=== PATIENT | male | born 1970 | race Caucasian/White ===

== ENCOUNTER 2018-02-17 11:00 | Emergency (ER) | payer MEDICAID ==
[~2018-02-17] VITALS: Ht 160 cm; Wt 90.7 kg
[2018-02-17 11:10] VITALS: BP 114/66
--- NOTE | 2018-02-17 11:13 | NUR ---
pt ambulates w/ steady gait to bed 6 at this time with family.
--- NOTE | 2018-02-17 11:17 | NUR ---
47 yo m bib family w/ c/o rt lower back pain/burning sensation/spasm radiating to rt lower leg with tingling. Denies acute injury. reports that he has had an episode similar to this in the past. Took tylenol last night, but it did not alleviate the pain. denies pain meds today. denies n/v/fever. aaox4. gcs 15. cms intact. rr even and unlabored. lungs clear. abd soft, non-tender. ER MD Merritt notfied. pt unable to lay down comfortably at this time. safety precautions in place. pt needs met. will continue to monitor.
[2018-02-17] MEDS ORDERED: MORPHINE SULFATE 2 MG/ML SYR IM ONE (11:20)
[2018-02-17] MEDS ORDERED: KETOROLAC 60 MG/2 ML VIAL IM ONE (11:20)
[2018-02-17] MEDS ORDERED: LORazepam 2 MG/ML VIAL IM ONE (11:20)
--- NOTE | 2018-02-17 12:16 | NUR ---
Pt. resting comfortably in bed, rr even and unlabored. Pt. states " My pain went down from a 10/10 to 4/10 I feel good right now". VSS. Will continue to monitor. Family member at bedside.
[2018-02-17 13:06] VITALS: BP 112/60
--- NOTE | 2018-02-17 13:06 | NUR ---
Patient discharged with v/s stable. Written and verbal after care instructions given and explained. Patient alert, oriented and verbalized understanding of instructions. Ambulatory with steady gait. All questions addressed prior to discharge. ID band removed. Patient advised to follow up with PMD. Rx of voltaren and toradol given. Patient educated on indication of medication including possible reaction and side effects. Opportunity to ask questions provided and answered.
== END 2018-02-17 13:06 | disposition home or self-care (01) ==
LOC: MED 11:00
DX: M62.830 Muscle spasm of back (principal); M54.5 Low back pain
CPT/HCPCS: 96372; 99284; J1885; J2060; J2270

== ENCOUNTER 2019-10-08 21:14 | Emergency (ER) | payer MEDICAID ==
[~2019-10-08] VITALS: Ht 154.9 cm; Wt 96.2 kg
[2019-10-08 21:16] VITALS: BP 123/84
--- NOTE | 2019-10-08 21:21 | NUR ---
PT AMBULATED TO BED #3
--- NOTE | 2019-10-08 21:29 | NUR ---
48 YEAR OLD MALE COMPLAINS OF PRODUCTIVE COUGH X 3 WEEKS, ALSO COMPLAINS OF SHORTNESS OF BREATHE RECENTLY. PATIENT LUNGS WHEEZING BILATERALLY, BREATHING LABORED AND EVEN. SPO2 93%, RR 18, HR 108, BP 118/73. PATIENT AOX4, SKIN WARM AND DRY. BED IN LOWEST POSITION, LOCKED, BED RAIL UPX1. PMH - DENIES ALLERGIES - NKA
--- NOTE | 2019-10-08 21:29 | NUR ---
DR LONG AT BEDSIDE
[2019-10-08] MEDS ORDERED: ALBUTEROL 0.083% 2.5 MG/3 ML NEBU INH ONE (21:30)
[2019-10-08] MEDS ORDERED: IPRATROPIUM 0.02% 0.5 MG/2.5 ML NEBU INH ONE (21:30)
--- NOTE | 2019-10-08 22:06 | NUR ---
PT STATES FEELS MUCH BETTER AFTER BREATHING TREATMENT, SPO2 95%, RR 20.
[2019-10-08 23:38] VITALS: BP 100/66
--- NOTE | 2019-10-08 23:39 | NUR ---
Patient discharged with v/s stable. Written and verbal after care instructions given and explained. Patient alert, oriented and verbalized understanding of instructions. Ambulatory with steady gait. All questions addressed prior to discharge. ID band removed. Patient advised to follow up with PMD. Rx of albuterol inh, albuterol neb, azithromycin given. Patient educated on indication of medication including possible reaction and side effects. Opportunity to ask questions provided and answered.
== END 2019-10-08 23:38 | disposition home or self-care (01) ==
LOC: MED 21:14
DX: R05 Cough (principal); R06.2 Wheezing
CPT/HCPCS: 71045; 94640; 99283; J7613; J7644; Q0092

== ENCOUNTER 2019-10-15 16:06 | Emergency (ER) | payer MEDICAID ==
[~2019-10-15] VITALS: Ht 165.1 cm; Wt 85.7 kg
--- NOTE | 2019-10-15 16:09 | NUR ---
PT AMBULATED TO BED 4.
[2019-10-15 16:13] VITALS: BP 137/74
--- NOTE | 2019-10-15 16:20 | NUR ---
DR FINE AT BEDSIDE.
[2019-10-15] MEDS ORDERED: KETOROLAC 30 MG/ML VIAL IVP ONE (16:25)
[2019-10-15] MEDS ORDERED: NACL 0.9% 1,000 ML IV ONE (16:25)
--- NOTE | 2019-10-15 16:30 | NUR ---
C/O ABD PAIN SINCE WEDNESDAY, PT REPORTS HE WAS HERE 10/07 FOR RESP INFECTION AND WAS GIVEN AZITHROMYCIN, SINCE THEN HES BEEN HAVING DIARRHEA AND LOWER LEFT ABD PAIN NO PMH. PT AWAKE , ALERT, AFIBRILE, AMBULATORY WITH STEADY GAIT. SOFT NABS NONTENDER. NKA
--- NOTE | 2019-10-15 16:31 | NUR ---
PT WENT TO CT SCAN VIA WHEELCHAIR.
[2019-10-15 17:26] LABS: BASOPHILS # (AUTO) 0.1 K/uL (0.00-0.22); BASOPHILS % (AUTO) 1.1 % (0.0-2.0); EOSINOPHILS # (AUTO) 0.6 K/uL (0-0.4); EOSINOPHILS % (AUTO) 8.1 % (0.0-4.0); HEMATOCRIT 44.9 % (36-52); LYMPHOCYTES # (AUTO) 2.2 K/uL (2.0-11.5); LYMPHOCYTES % (AUTO) 31.4 % (20.5-51.1); MEAN CORPUSCULAR HEMOGLOBIN 29 pg (27-31); MEAN CORPUSCULAR HGB CONC 34 g/dL (33-37); MEAN CORPUSCULAR VOLUME 86.1 fL (80-94); MONOCYTES # (AUTO) 0.5 K/uL (0.8-1.0); MONOCYTES % (AUTO) 7.9 % (1.7-9.3); NEUTROPHILS # (AUTO) 3.5 K/uL (1.8-7.7); NEUTROPHILS % (AUTO) 51.5 % (42.2-75.2); PLATELET COUNT (AUTO) 320 K/uL (140-450); RED BLOOD CELL COUNT(AUTO) 5.21 MIL/uL (4.20-6.10); RED CELL DISTRIBUTION WIDTH 13.2 % (11.6-13.7); WHITE BLOOD COUNT (AUTO) 6.9 K/uL (4.8-10.8)
--- NOTE | 2019-10-15 17:40 | NUR ---
Patient discharged with v/s stable. Written and verbal after care instructions given and Dr walter explained regarding abdominal pain. Patient alert, oriented and verbalized understanding of instructions. Ambulatory with steady gait. All questions addressed prior to discharge. ID band removed. Patient advised to follow up with PMD. Rx of pro biotics given. Patient educated on indication of medication including possible reaction and side effects. Opportunity to ask questions provided and answered.dr walter discharge pt.
[2019-10-15 17:42] LABS: ALBUMIN 3.6 g/dL (3.4-5.0); ANION GAP 10.9 (8-16); CARBON DIOXIDE 29.9 mmol/L (21-32); CREATININE 1.1 mg/dL (0.6-1.3); POTASSIUM 3.8 mmol/L (3.5-5.1); TOTAL BILIRUBIN 0.3 mg/dL (0.0-1.0)
[2019-10-15 17:51] VITALS: BP 137/74
--- NOTE | 2019-10-17 10:27 | NUR ---
Late entry. Confirmed with RN that 0.9NS IV completed at 1740
== END 2019-10-15 17:40 | disposition home or self-care (01) ==
LOC: MED 16:06
DX: K52.1 Toxic gastroenteritis and colitis (principal); T36.3X5A Adverse effect of macrolides, initial encounter; Y92.89 Other specified places as the place of occurrence of the external cause
CPT/HCPCS: 36415; 74176; 80053; 85025; 87040; 96361; 96374; 99284; J1885; J7030

== ENCOUNTER 2019-11-14 22:29 | Emergency (ER) | payer MEDICAID ==
[~2019-11-14] VITALS: Ht 167.6 cm; Wt 90.7 kg
[2019-11-14 22:38] VITALS: BP 130/68
[2019-11-14] MEDS ORDERED: IBUPROFEN 600 MG TAB PO ONE (22:45)
[2019-11-14] MEDS ORDERED: BACITRACIN OINT 500 UNITS/GM PKT TP ONE ×2 (23:15→23:16)
[2019-11-14 23:33] VITALS: BP 130/68
== END 2019-11-14 23:34 | disposition home or self-care (01) ==
LOC: MED 22:29
DX: S61.002A Unspecified open wound of left thumb without damage to nail, initial encounter (principal); W29.4XXA Contact with nail gun, initial encounter; Y93.89 Activity, other specified; Y92.89 Other specified places as the place of occurrence of the external cause; Y99.8 Other external cause status
CPT/HCPCS: 29130; 73140; 90471; 90715; 99283; Q0092

== ENCOUNTER 2019-12-16 17:05 | Emergency (ER) | payer MEDICAID ==
[~2019-12-16] VITALS: Ht 162.6 cm; Wt 96.6 kg
[2019-12-16 17:09] VITALS: BP 105/72
--- NOTE | 2019-12-16 17:12 | NUR ---
PT AMBULATED TO BED 12, STEADY GAIT.
--- NOTE | 2019-12-16 17:20 | NUR ---
49 Y/O MALE FROM HOME C/O HEADACHE TO OCCIPITAL REGION X 6 DAYS. STATES DIZZINESS WITH SLIGHT BLURRED VISION. DENIES PHOTOSENSITIVITY. DENIES N/V/D. 6/10 CONSTANT ACHING PAIN. STATES HE TOOK ANTIBIOTIC FROM PREVIOUS VISIT YESTERDAY AND NOW HAS RASH ON BILATERAL LOWER EXTREMITIES. SITTING UPRIGHT AWAKE AND ALERT. MEDHX: DENIES ALLERIGES: RYANA
--- NOTE | 2019-12-16 17:37 | NUR ---
DR METCALF AT BEDSIDE EXAMINING PT
[2019-12-16] MEDS ORDERED: KETOROLAC 30 MG/ML VIAL IM ONE (17:45)
[2019-12-16 18:00] VITALS: BP 105/72
--- NOTE | 2019-12-16 18:00 | NUR ---
Patient discharged with v/s stable. Written and verbal after care instructions given and explained. Patient alert, oriented and verbalized understanding of instructions. Ambulatory with steady gait. All questions addressed prior to discharge. ID band removed. Patient advised to follow up with PMD. Rx of NORCO, BACTRIM, KEFLEX AND IBUPROFEN given. Patient educated on indication of medication including possible reaction and side effects. Opportunity to ask questions provided and answered.
== END 2019-12-16 18:00 | disposition home or self-care (01) ==
LOC: MED 17:05
DX: L02.811 Cutaneous abscess of head [any part, except face] (principal); R51 Headache
CPT/HCPCS: 96372; 99283; J1885

== ENCOUNTER 2020-03-20 21:24 | Emergency (ER) | payer MEDICAID ==
[~2020-03-20] VITALS: Ht 162.6 cm; Wt 98.9 kg
--- NOTE | 2020-03-20 21:37 | NUR ---
PT TAKEN TO BED 4
[2020-03-20 21:38] VITALS: BP 129/84
--- NOTE | 2020-03-20 21:40 | NUR ---
49 YO M BIB SELF FOR C/C OF GNERALIZED WEAKNESS, BECKER, ORBITAL PAIN, AND "FEELING LIKE IM GOING TO PASS OUT" X6 DAYS. PT DENIES N/V/D, SOB, COUGH, AND FEVER. PT STATES HE HASNT BEEN EATING UNTIL THE AFTERNOON TIME ALTHOUGH HE WORKS ALL DAY STARTING IN THE MORNING. PT DENIES TAKING ANY OTC MEDS. BED LOCKED AND IN LOWEST POSITION. SIDE RAILS X1. NKA NO MED HX NO RX
--- NOTE | 2020-03-20 22:26 | NUR ---
Dr. Ortiz examining patient.
[2020-03-20] MEDS ORDERED: METOCLOPRAMIDE 10 MG/2 ML INJ VIAL IVP ONE (22:50)
[2020-03-20] MEDS ORDERED: KETOROLAC 15 MG/ML VIAL IVP ONE (22:50)
[2020-03-20] MEDS ORDERED: NACL 0.9% 1,000 ML IV ONE (22:50)
[2020-03-20 23:03] LABS: BASOPHILS # (AUTO) 0.1 K/uL (0.00-0.22); BASOPHILS % (AUTO) 0.8 % (0.0-2.0); EOSINOPHILS # (AUTO) 0.3 K/uL (0-0.4); EOSINOPHILS % (AUTO) 5.4 % (0.0-4.0); HEMATOCRIT 43.6 % (36-52); HEMOGLOBIN 14.6 g/dL (12.0-18.0); LYMPHOCYTES # (AUTO) 2.5 K/uL (2.0-11.5); LYMPHOCYTES % (AUTO) 38.4 % (20.5-51.1); MEAN CORPUSCULAR HEMOGLOBIN 29 pg (27-31); MEAN CORPUSCULAR HGB CONC 34 g/dL (33-37); MEAN CORPUSCULAR VOLUME 86.7 fL (80-94); MONOCYTES # (AUTO) 0.4 K/uL (0.8-1.0); MONOCYTES % (AUTO) 6.1 % (1.7-9.3); NEUTROPHILS # (AUTO) 3.2 K/uL (1.8-7.7); NEUTROPHILS % (AUTO) 49.3 % (42.2-75.2); PLATELET COUNT (AUTO) 306 K/uL (140-450); RED BLOOD CELL COUNT(AUTO) 5.02 MIL/uL (4.20-6.10); RED CELL DISTRIBUTION WIDTH 13.4 % (11.6-13.7); WHITE BLOOD COUNT (AUTO) 6.5 K/uL (4.8-10.8)
[2020-03-20 23:15] LABS: ANION GAP 14.1 (8-16); CARBON DIOXIDE 27.3 mmol/L (21-32); POTASSIUM 3.4 mmol/L (3.5-5.1)
--- NOTE | 2020-03-20 23:34 | NUR ---
Dr. Anna examining patient.
--- NOTE | 2020-03-20 23:40 | NUR ---
PT RESTING IN BED COMFORTABLY, SAYS HE "FEELS GREAT RIGHT NOW AND THE MEDICINE HELPED ALOT."
[2020-03-21 00:03] VITALS: BP 112/70
--- NOTE | 2020-03-21 00:03 | NUR ---
Patient discharged with v/s stable. Written and verbal after care instructions given and explained. Patient verbalized understanding. Ambulatory with steady gait. All questions addressed prior to discharge. Advised to follow up with PMD.
== END 2020-03-21 00:03 | disposition home or self-care (01) ==
LOC: MED 21:24
DX: R51 Headache (principal); R42 Dizziness and giddiness
CPT/HCPCS: 36415; 80048; 85025; 96361; 96374; 96375; 99284; J1885; J2765; J7030

== ENCOUNTER 2020-11-20 22:03 | Emergency (ER) | payer MEDICAID ==
[~2020-11-20] VITALS: Ht 154.9 cm; Wt 94.3 kg
[2020-11-20 22:11] VITALS: BP 125/61
--- NOTE | 2020-11-20 22:15 | NUR ---
PT TO AWAIT IN LOBBY, AMBULATORY
--- NOTE | 2020-11-20 23:15 | NUR ---
PATIENT BIB SELF FOR C/O 5/10 PAIN TO RIGHT LOWER EXTREMITY X 5 DAYS. PATIENT STATES "I GOT THE BOB & BOB COVID VACCINE ON WEDNESDAY, THEN WEDNESDAY I GOT A RASH ALL OVER AND A BUMP IN MY LEG THAT IS PAINFUL." A & O X4. PATIENT STATES GENERALIZED RASH IS ITCHY AND PAINFUL. PATIENT REPORTS "I ALSO HAVE BUMPS ON THE BACK OF MY RIGHT KNEE." PATIENTS SKIN IS WARM, DRY AND INTACT WITH NOTED RASH, NO OPEN LESIONS. CMS INTACT. PEDAL PULSES EQUAL BILATERALLY. PATIENT IS AMBULATORY. CAP REFILL < 3 SECONDS. NO NOTED REDNESS OR HEAT NOTED TO RLE, MILD SWELLING NOTED. PATIENT DENIES CP, SOB, FEVER, CHILLS. BED IS LOCKED AND IN LOWEST POSITION, HOB ELEVATED, BED RAIL X1. SEE COMPLETE ASSESSMENT FOR FURTHER DETAILS. MED HX: DENIES ALLERGIES: NKA
--- NOTE | 2020-11-20 23:34 | NUR ---
DR BLAS AT BEDSIDE EXAMINING PT
--- NOTE | 2020-11-20 23:37 | NUR ---
ERMD AT BEDSIDE.
[2020-11-20] MEDS ORDERED: diphenhydrAMINE 50 MG/ML VIAL IM ONE (23:40)
--- NOTE | 2020-11-21 00:09 | NUR ---
US AT BEDSIDE.
--- NOTE | 2020-11-21 00:47 | NUR ---
Patient appears to be resting comfortably in bed. Vital Signs within normal limits. Respirations even and unlabored. PATIENT STATES "I FEEL A LOT BETTER."
[2020-11-21] MEDS ORDERED: HYD1C TP (02:16)
[2020-11-21] MEDS ORDERED: DIPH25TA53 PO (02:16)
[2020-11-21 02:32] VITALS: BP 112/73
--- NOTE | 2020-11-21 02:36 | NUR ---
Patient discharged with v/s stable. Written and verbal after care instructions given and explained. Patient alert, oriented and verbalized understanding of instructions. Ambulatory with steady gait. All questions addressed prior to discharge. ID band removed. Patient advised to follow up with PMD. Rx of BENADRYL AND HYDROCORTISONE given. Patient educated on indication of medication including possible reaction and side effects. Opportunity to ask questions provided and answered.
== END 2020-11-21 02:32 | disposition home or self-care (01) ==
LOC: MED 22:03
DX: R21 Rash and other nonspecific skin eruption (principal); M79.10 Myalgia, unspecified site; Z79.899 Other long term (current) drug therapy
CPT/HCPCS: 93971; 96372; 99284; J1200

== ENCOUNTER 2021-01-19 15:20 | Emergency (ER) | payer MEDICAID ==
[~2021-01-19] VITALS: Ht 165.1 cm; Wt 96.2 kg
[~2021-01-19 15:20] MED LIST: DIPH25TA53 PO; HYD1C TP
[2021-01-19 15:31] VITALS: BP 114/79
--- NOTE | 2021-01-19 16:12 | NUR ---
TO BED 9
[2021-01-19] MEDS ORDERED: METH750T5 PO (16:55)
[2021-01-19] MEDS ORDERED: LIDO1ADH47 TP (16:55)
[2021-01-19] MEDS ORDERED: methocarbamoL 500 MG TAB PO SCH (16:55)
[2021-01-19] MEDS ORDERED: KETOROLAC 60 MG/2 ML VIAL IM ONE (16:55)
[2021-01-19] MEDS ORDERED: NAPR-54 PO (16:55)
--- NOTE | 2021-01-19 17:30 | NUR ---
50 YEAR OLD MALE COMPLAINS OF LOWER BACK PAIN. PT DENIES CHANGE IN URINATION OR ANY OTHER PROBLEMS. PT AOX4, BREATHING EVEN AND UNLABORED, SKIN WARM AND DRY. BED IN LOWEST POSITION, LOCKED, BED RAIL UPX1. PMH - DENIES ALLERGIES - NKA
[2021-01-19] MEDS ORDERED: CRUSHER, PILL MC ONE (17:34)
[2021-01-19 18:04] VITALS: BP 114/79
--- NOTE | 2021-01-19 18:04 | NUR ---
Patient discharged with v/s stable. Written and verbal after care instructions about muscle strain given and explained. Patient alert, oriented and verbalized understanding of instructions. Ambulatory with steady gait. All questions addressed prior to discharge. ID band removed. Patient advised to follow up with PMD. Rx of lidocaine, robaxin, naprosyn given. Patient educated on indication of medication including possible reaction and side effects. Opportunity to ask questions provided and answered.
== END 2021-01-19 18:04 | disposition home or self-care (01) ==
LOC: MED 15:20
DX: S39.012A Strain of muscle, fascia and tendon of lower back, initial encounter (principal); X58.XXXA Exposure to other specified factors, initial encounter; Y93.89 Activity, other specified; Y92.89 Other specified places as the place of occurrence of the external cause; Y99.8 Other external cause status
CPT/HCPCS: 96372; 99283; J1885; 81002

== ENCOUNTER 2021-08-04 07:25 | Emergency (ER) | payer MEDICAID ==
[~2021-08-04] VITALS: Ht 165.1 cm; Wt 99.3 kg
[~2021-08-04 07:25] MED LIST changes: +LIDO1ADH47 TP; +METH750T5 PO; +NAPR-54 PO
[2021-08-04 07:39] VITALS: BP 110/74
--- NOTE | 2021-08-04 07:46 | NUR ---
pt ambulated to bed 02
--- NOTE | 2021-08-04 08:03 | NUR ---
NOVEL SWAB COLLECTED AND WALKED TO LAB.
[2021-08-04] MEDS ORDERED: ACETAMINOPHEN 325 MG TAB PO ONE (08:10)
--- NOTE | 2021-08-04 08:33 | NUR ---
50/M BIB SELF WITH C/O COUGH, CHILLS, FEVER AND BODY ACHES X4 DAYS. PATIENT STATES HE IS COVID VACCINATED AND DENIES ANY SICK CONTACTS OR ANYONE AT HOME WITH THE SAME SYMPTOMS. PATIENT STATES MILD CHEST PAIN THAT WORSENS WITH COUGH, DENIES N/V/D OR URINARY SYMPTOMS.
[2021-08-04 09:00] VITALS: BP 110/74
--- NOTE | 2021-08-06 14:08 | NUR ---
RECEIVED COVID + RESULT, ASKED FOR COPY TO BE SENT TO LEAVE IN INFECTION CONTROL MAILBOX.
== END 2021-08-04 09:01 | disposition home or self-care (01) ==
LOC: MED 07:25
DX: J06.9 Acute upper respiratory infection, unspecified (principal); Z20.822 Contact with and (suspected) exposure to COVID-19
CPT/HCPCS: 71045; 99284; Q0092; U0003

== ENCOUNTER 2021-10-08 17:33 | Emergency (ER) | payer MEDICAID ==
[~2021-10-08] VITALS: Ht 157.5 cm; Wt 97.1 kg
[2021-10-08 17:58] VITALS: BP 136/76
--- NOTE | 2021-10-08 18:16 | NUR ---
SWETHA FONG EVALUATING PATIENT AT BEDSIDE.
[2021-10-08] MEDS ORDERED: methylPREDNISolone SS 125 MG in WATER STERILE 2 ML IM ONE (18:20)
--- NOTE | 2021-10-08 18:21 | NUR ---
50/M BIB SELF, AA&OX4, AMBULATORY W/ STEADY GAIT; PRESENTS TO ED WITH C/O GENERALIZED BODY RASH AND EYE PAIN 8/10 X3 DAYS. PATIENT STATES HIS SKIN IS "ITCHY AND FEELS IT IS BURNING."PATIENT STATES HE WORKS WITH [employer] AND STATES HE HAD DEBRIS FALL ON HIM. PATIENT DENIES SOB, CP, FEVER, CHILLS, N/V/D, INJURY/TRAUMA. PATIENT STATES TO HAVE PUT AN UNKNOWN OTC "ITCH CREAM" AT HOME TO HELP W/ SYMPTOMS, NO RELIEF NOTED. MEDS: DENIES PMH: DENIES NKA
[2021-10-08] MEDS ORDERED: PRED20TA5 PO (18:25)
[2021-10-08] MEDS ORDERED: KEN.1O TP (18:25)
[2021-10-08] MEDS ORDERED: WATER STERILE 10 ML MC ONE (18:26)
[2021-10-08] MEDS ORDERED: methylPREDNISolone SS 125 MG/2 ML VIAL ONE (18:26)
[2021-10-08 18:59] VITALS: BP 136/76
--- NOTE | 2021-10-08 18:59 | NUR ---
Patient discharged with v/s stable. Written and verbal after care instructions given FOR RASH and explained. Patient alert, oriented and verbalized understanding of instructions. Ambulatory with steady gait. All questions addressed prior to discharge. ID band removed. Patient advised to follow up with PMD. Rx of KENALOG AND PREDNISONE given. Patient educated on indication of medication including possible reaction and side effects. Opportunity to ask questions provided and answered.
--- NOTE | 2021-10-08 19:01 | NUR ---
The patient's care was reviewed and supervised by Kate Rios RN.
== END 2021-10-08 18:59 | disposition home or self-care (01) ==
LOC: MED 17:33
DX: L23.9 Allergic contact dermatitis, unspecified cause (principal); Z79.899 Other long term (current) drug therapy
CPT/HCPCS: 96372; 99283; J2930

== ENCOUNTER 2022-01-25 22:01 | Emergency (ER) | payer MEDICAID ==
[~2022-01-25] VITALS: Ht 162.6 cm; Wt 103.0 kg
[~2022-01-25 22:01] MED LIST changes: +KEN.1O TP; +PRED20TA5 PO
[2022-01-25 23:02] VITALS: BP 130/72
--- NOTE | 2022-01-25 23:02 | NUR ---
ALLERGIC REACTION S/P EATING PORK ABOUT 1PM. PT REPORTS ITCHINESS ON ARM AND CHEST. DENIES DIFFICULTY BREATHING. STATES THROAT IS A LITTLE TIGHT. PT STATES HE HAS EATTEN PORK IN PAST WITHOUT ISSUES. DENIES HX, RX AND ALLERGIES
--- NOTE | 2022-01-25 23:06 | NUR ---
PT TO NAY.
--- NOTE | 2022-01-25 23:12 | NUR ---
pt ambulated to bed 11
[2022-01-25] MEDS ORDERED: predniSONE 20 MG TAB PO ONE (23:45)
[2022-01-25] MEDS ORDERED: DIPH25TA53 PO (23:48)
[2022-01-25] MEDS ORDERED: EPIN1KIT31 IM (23:48)
[2022-01-25] MEDS ORDERED: PRED20TA5 PO (23:48)
[2022-01-26 00:35] VITALS: BP 130/72
--- NOTE | 2022-01-26 00:35 | NUR ---
Patient discharged with v/s stable. Written and verbal after care instructions given and explained. Patient alert, oriented and verbalized understanding of instructions. Ambulatory with steady gait. All questions addressed prior to discharge. ID band removed. Patient advised to follow up with PMD. Rx of Benadryl, & Prednisone given. Patient educated on indication of medication including possible reaction and side effects. Opportunity to ask questions provided and answered.
== END 2022-01-26 00:35 | disposition home or self-care (01) ==
LOC: MED 22:01
DX: T78.1XXA Other adverse food reactions, not elsewhere classified, initial encounter (principal); L23.9 Allergic contact dermatitis, unspecified cause; Z79.899 Other long term (current) drug therapy; X58.XXXA Exposure to other specified factors, initial encounter
CPT/HCPCS: 99283; J7512; Q0163

== ENCOUNTER 2022-07-19 18:48 | Emergency (ER) | payer MEDICAID ==
[~2022-07-19] VITALS: Ht 167.6 cm; Wt 98.9 kg
[~2022-07-19 18:48] MED LIST changes: +EPIN1KIT31 IM
[2022-07-19 19:45] VITALS: BP 122/75
[2022-07-19 19:47] LABS: BASOPHILS % (AUTO) 0.5 % (0.0-2.0); EOSINOPHILS # (AUTO) 0.4 K/uL (0-0.4); EOSINOPHILS % (AUTO) 4.1 % (0.0-4.0); HEMOGLOBIN 15.1 g/dL (12.0-18.0); LYMPHOCYTES # (AUTO) 3.6 K/uL (2.0-11.5); LYMPHOCYTES % (AUTO) 38.7 % (20.5-51.1); MEAN CORPUSCULAR HEMOGLOBIN 29 pg (27-31); MEAN CORPUSCULAR HGB CONC 34 g/dL (33-37); MEAN CORPUSCULAR VOLUME 85.2 fL (80-94); MONOCYTES # (AUTO) 0.6 K/uL (0.8-1.0); MONOCYTES % (AUTO) 6.9 % (1.7-9.3); NEUTROPHILS # (AUTO) 4.6 K/uL (1.8-7.7); NEUTROPHILS % (AUTO) 49.8 % (42.2-75.2); PLATELET COUNT (AUTO) 337 K/uL (140-450); RED BLOOD CELL COUNT(AUTO) 5.29 MIL/uL (4.20-6.10); RED CELL DISTRIBUTION WIDTH 13.9 % (11.6-13.7); WHITE BLOOD COUNT (AUTO) 9.3 K/uL (4.8-10.8)
--- NOTE | 2022-07-19 19:49 | NUR ---
TO LOBBY A/W BED AMBULATORY
[2022-07-19 20:07] LABS: ALBUMIN 3.6 g/dL (3.4-5.0); ANION GAP 9.4 (8-16); CARBON DIOXIDE 33.8 mmol/L (21-32); CREATININE 0.9 mg/dL (0.6-1.3); POTASSIUM 4.2 mmol/L (3.5-5.1); TOTAL BILIRUBIN 0.2 mg/dL (0.0-1.0)
--- NOTE | 2022-07-19 21:00 | NUR ---
PT TAKEN TO XRAY
[2022-07-19] MEDS ORDERED: ONDANSETRON 4 MG ODT PO ONE (21:20)
[2022-07-19] MEDS ORDERED: FAMOTIDINE 20 MG TAB PO ONE (21:20)
[2022-07-19] MEDS ORDERED: DICYCLOMINE HCL LIQUID 20 MG, ALUMINUM HYD/MAG/SIMETHICONE 30 ML, LIDOCAINE VISCOUS 2% ... PO ONE ×3 (21:20)
[2022-07-19] MEDS ORDERED: DICYCLOMINE HCL LIQUID 10 MG/5 ML UDC ONE (21:42)
[2022-07-19] MEDS ORDERED: ALUMINUM HYD/MAG/SIMETHICONE 30 ML UDC ONE (21:42)
--- NOTE | 2022-07-19 21:49 | NUR ---
PATIENT MEDICATED. TOLERATED WELL. PLACED BACK IN LOBBY
[2022-07-19 21:53] LABS: APPEARANCE,URINE CLEAR (CLEAR); BILIRUBIN,URINE NEGATIVE (NEGATIVE); BLOOD, URINE NEGATIVE (NEGATIVE); COLOR,URINE YELLOW (YELLOW); LEUKOCYTE ESTERASE ,URINE NEGATIVE (NEGATIVE); NITRITE, URINE NEGATIVE (NEGATIVE); PH,URINE 5.5 (5.0-9.0); UGLUCOSE NEGATIVE (NEGATIVE)
[2022-07-19] MEDS ORDERED: FAMO-90 PO (22:02)
[2022-07-19] MEDS ORDERED: BEN10 PO (22:02)
[2022-07-19] MEDS ORDERED: OMEP40EC23 PO (22:02)
[2022-07-19 22:15] VITALS: BP 122/75
--- NOTE | 2022-07-19 22:15 | NUR ---
Patient discharged with v/s stable. Written and verbal after care instructions given and explained. Patient alert, oriented and verbalized understanding of instructions. Ambulatory with steady gait. All questions addressed prior to discharge. ID band removed. Patient advised to follow up with PMD. Rx of BENTYL, PEPCID, PRILOSEC given. Patient educated on indication of medication including possible reaction and side effects. Opportunity to ask questions provided and answered.
== END 2022-07-19 22:15 | disposition home or self-care (01) ==
LOC: MED 18:48
DX: K29.70 Gastritis, unspecified, without bleeding (principal)
CPT/HCPCS: 36415; 71045; 74018; 80053; 81003; 83690; 85025; 99284; Q0162

== ENCOUNTER 2022-11-04 09:53 | Emergency (ER) | payer MEDICAID ==
[~2022-11-04] VITALS: Ht 162.6 cm; Wt 100.7 kg
[~2022-11-04 09:53] MED LIST changes: +BEN10 PO; +FAMO-90 PO; +OMEP40EC23 PO
[2022-11-04 10:01] VITALS: BP 112/71
--- NOTE | 2022-11-04 10:15 | NUR ---
PA Tamez evaluating pt at bedside
[2022-11-04] MEDS ORDERED: KETOROLAC 30 MG/ML VIAL IM ONE (10:25)
--- NOTE | 2022-11-04 10:25 | NUR ---
51 y/o M BIB self from home c/o left lower back pain x 1 day s/p bending over while getting out of vehicle. Reports left lower back pain 02/15, burning/constant, non-radiating. Aggrevating factors with sitting position. Ibuprofen yesterday with minor relief. Denies numbness, tingling, incontinence, bowel complaint, trauma, injury, fall. Bed locked in lowest position, side rails x 1. PMH/Sx/Meds: Denies NKDA
[2022-11-04 11:00] LABS: APPEARANCE,URINE CLEAR (CLEAR); BILIRUBIN,URINE NEGATIVE (NEGATIVE); BLOOD, URINE NEGATIVE (NEGATIVE); COLOR,URINE YELLOW (YELLOW); LEUKOCYTE ESTERASE ,URINE NEGATIVE (NEGATIVE); NITRITE, URINE NEGATIVE (NEGATIVE); PH,URINE 6.5 (5.0-9.0); UGLUCOSE TRACE (NEGATIVE)
[2022-11-04] MEDS ORDERED: IBUP-2213 PO (11:27)
[2022-11-04] MEDS ORDERED: CYCL-711 PO (11:27)
[2022-11-04] MEDS ORDERED: LID5T TP (11:27)
--- NOTE | 2022-11-04 11:55 | NUR ---
Patient discharged with v/s stable. Written and verbal after care instructions given and explained for Lumbar Strain. Patient alert, oriented and verbalized understanding of instructions. Ambulatory with steady gait. All questions addressed prior to discharge. ID band removed. Patient advised to follow up with PMD. Rx of Flexeril, Ibuprofen, Lidocaine 5% Patch given. Patient educated on indication of medication including possible reaction and side effects. Opportunity to ask questions provided and answered.
== END 2022-11-04 11:55 | disposition home or self-care (01) ==
LOC: MED 09:53
DX: S39.012A Strain of muscle, fascia and tendon of lower back, initial encounter (principal); Z79.899 Other long term (current) drug therapy; Z79.1 Long term (current) use of non-steroidal anti-inflammatories (NSAID); X58.XXXA Exposure to other specified factors, initial encounter; Y92.89 Other specified places as the place of occurrence of the external cause; Y93.89 Activity, other specified; Y99.8 Other external cause status
CPT/HCPCS: 81003; 96372; 99283; J1885

== ENCOUNTER 2023-03-26 22:57 | Emergency (ER) | payer MEDICAID ==
[~2023-03-26] VITALS: Ht 157.5 cm; Wt 102.1 kg
[~2023-03-26 22:57] MED LIST changes: +CYCL-711 PO; +IBUP-2213 PO; +LID5T TP
[2023-03-26 23:05] VITALS: BP 139/89; PULSE 89; RESP 17; TEMP 97.6; O2SAT 98
[2023-03-26] MEDS ORDERED: NACL 0.9% 1,000 ML IV ONE (23:20)
[2023-03-26] MEDS ORDERED: METOCLOPRAMIDE 10 MG/2 ML INJ VIAL IVP ONE (23:25)
[2023-03-26 23:45] VITALS: TEMP 97.6
[2023-03-27 00:24] LABS: BASOPHILS # (AUTO) 0.1 K/uL (0.00-0.22); BASOPHILS % (AUTO) 0.7 % (0.0-2.0); EOSINOPHILS # (AUTO) 0.4 K/uL (0-0.4); EOSINOPHILS % (AUTO) 3.3 % (0.0-4.0); HEMOGLOBIN 14.6 g/dL (12.0-18.0); LYMPHOCYTES # (AUTO) 3.8 K/uL (2.0-11.5); LYMPHOCYTES % (AUTO) 36.1 % (20.5-51.1); MEAN CORPUSCULAR HEMOGLOBIN 28 pg (27-31); MEAN CORPUSCULAR HGB CONC 33 g/dL (33-37); MONOCYTES # (AUTO) 0.8 K/uL (0.8-1.0); MONOCYTES % (AUTO) 7.8 % (1.7-9.3); NEUTROPHILS # (AUTO) 5.5 K/uL (1.8-7.7); NEUTROPHILS % (AUTO) 52.1 % (42.2-75.2); PLATELET COUNT (AUTO) 333 K/uL (140-450); RED BLOOD CELL COUNT(AUTO) 5.18 MIL/uL (4.20-6.10); RED CELL DISTRIBUTION WIDTH 14.1 % (11.6-13.7); WHITE BLOOD COUNT (AUTO) 10.6 K/uL (4.8-10.8)
[2023-03-27 00:52] LABS: ALBUMIN 3.7 g/dL (3.4-5.0); ANION GAP 9.3 (8-16); CALCIUM 9.1 mg/dL (8.5-10.1); CARBON DIOXIDE 32.5 mmol/L (21-32); CREATININE 1.1 mg/dL (0.6-1.3); POTASSIUM 3.8 mmol/L (3.5-5.1); TOTAL BILIRUBIN 0.3 mg/dL (0.0-1.0); TOTAL PROTEIN, SERUM 7.9 g/dL (6.4-8.2)
[2023-03-27] MEDS ORDERED: NACL 0.9% 1,000 ML IV ONE (01:55)
[2023-03-27 02:30] LABS: APPEARANCE,URINE CLEAR (CLEAR); BILIRUBIN,URINE NEGATIVE (NEGATIVE); BLOOD, URINE NEGATIVE (NEGATIVE); COLOR,URINE YELLOW (YELLOW); LEUKOCYTE ESTERASE ,URINE NEGATIVE (NEGATIVE); NITRITE, URINE NEGATIVE (NEGATIVE); PH,URINE 5.5 (5.0-9.0); PROTEIN,URINE NEGATIVE (NEGATIVE); UGLUCOSE NEGATIVE (NEGATIVE); UROBILINOGEN,URINE 0.2 EU/dL (0.2 - 1)
[2023-03-27] MEDS ORDERED: ONDA-188 SL (03:13)
[2023-03-27 03:25] VITALS: BP 101/56; PULSE 72; RESP 18; O2SAT 96
== END 2023-03-27 03:25 | disposition home or self-care (01) ==
LOC: MED 22:57
DX: R10.84 Generalized abdominal pain (principal); R11.10 Vomiting, unspecified; Z79.899 Other long term (current) drug therapy
CPT/HCPCS: 36415; 74176; 80053; 81003; 83690; 85025; 93005; 96361; 96374; 99285; J2765; 99284; J7030

== ENCOUNTER 2023-06-25 12:27 | Emergency (ER) | payer MEDICAID ==
[~2023-06-25] VITALS: Ht 154.9 cm; Wt 102.1 kg
[~2023-06-25 12:27] MED LIST changes: +ONDA-188 SL
[2023-06-25 12:53] VITALS: BP 113/68; PULSE 110; RESP 15; TEMP 101.4; O2SAT 95
[2023-06-25] MEDS ORDERED: ACETAMINOPHEN EXTRA STRENGTH 500 MG TAB PO ONE (13:20)
[2023-06-25 13:47] LABS: BASOPHILS % (AUTO) 0.4 % (0.0-2.0); EOSINOPHILS % (AUTO) 0.2 % (0.0-4.0); HEMATOCRIT 43.4 % (36-52); HEMOGLOBIN 14.4 g/dL (12.0-18.0); LYMPHOCYTES # (AUTO) 1.8 K/uL (2.0-11.5); LYMPHOCYTES % (AUTO) 28.9 % (20.5-51.1); MEAN CORPUSCULAR HEMOGLOBIN 28 pg (27-31); MEAN CORPUSCULAR HGB CONC 33 g/dL (33-37); MEAN CORPUSCULAR VOLUME 84.6 fL (80-94); MONOCYTES # (AUTO) 0.7 K/uL (0.8-1.0); MONOCYTES % (AUTO) 10.5 % (1.7-9.3); NEUTROPHILS # (AUTO) 3.7 K/uL (1.8-7.7); PLATELET COUNT (AUTO) 254 K/uL (140-450); RED BLOOD CELL COUNT(AUTO) 5.13 MIL/uL (4.20-6.10); WHITE BLOOD COUNT (AUTO) 6.3 K/uL (4.8-10.8)
[2023-06-25 14:17] LABS: LACTIC ACID 1.2 mmol/L (0.4-2.0)
[2023-06-25 14:48] LABS: ALBUMIN 3.8 g/dL (3.4-5.0); CALCIUM 8.5 mg/dL (8.5-10.1); CARBON DIOXIDE 25.6 mmol/L (21-32); POTASSIUM 3.6 mmol/L (3.5-5.1); TOTAL BILIRUBIN 0.6 mg/dL (0.0-1.0); TOTAL PROTEIN, SERUM 8.1 g/dL (6.4-8.2)
[2023-06-25] MEDS ORDERED: NACL 0.9% 1,000 ML IV ONE ×3 (15:00→18:30)
[2023-06-25] MEDS ORDERED: KETOROLAC 30 MG/ML VIAL IVP ONE (15:00)
[2023-06-25] MEDS ORDERED: ACETAMINOPHEN EXTRA STRENGTH 500 MG TAB ONE (15:12)
[2023-06-25 16:42] LABS: FLU A ANTIGEN negative (NEGATIVE); FLU B ANTIGEN NEGATIVE (NEGATIVE)
[2023-06-25 17:17] VITALS: O2SAT 95
[2023-06-25 17:20] LABS: APPEARANCE,URINE CLEAR (CLEAR); BILIRUBIN,URINE NEGATIVE (NEGATIVE); BLOOD, URINE NEGATIVE (NEGATIVE); COLOR,URINE YELLOW (YELLOW); LEUKOCYTE ESTERASE ,URINE NEGATIVE (NEGATIVE); NITRITE, URINE NEGATIVE (NEGATIVE); PROTEIN,URINE TRACE (NEGATIVE); UGLUCOSE NEGATIVE (NEGATIVE)
[2023-06-25] MEDS ORDERED: IBUP-2213 PO (17:57)
[2023-06-25] MEDS ORDERED: DOXY-690 PO (17:57)
[2023-06-25 19:16] VITALS: O2SAT 95
[2023-06-25 19:22] VITALS: BP 102/67; PULSE 96; RESP 18; TEMP 100; O2SAT 96
== END 2023-06-25 19:22 | disposition home or self-care (01) ==
LOC: MED 12:27
DX: J18.9 Pneumonia, unspecified organism (principal); Z20.822 Contact with and (suspected) exposure to COVID-19; Z79.899 Other long term (current) drug therapy
CPT/HCPCS: 36415; 71045; 80053; 81003; 83605; 83880; 84484; 85025; 87040; 87086; 87426; 87804; 93005; 96361; 96374; 99285; J1885; J7030

== ENCOUNTER 2023-08-08 09:55 | Emergency (ER) | payer MEDICAID ==
[~2023-08-08] VITALS: Ht 162.6 cm; Wt 101.6 kg
[~2023-08-08 09:55] MED LIST changes: +DOXY-690 PO
[2023-08-08 10:18] VITALS: BP 128/89; PULSE 65; RESP 18; TEMP 98.5; O2SAT 100
[2023-08-08] MEDS ORDERED: ALUMINUM HYD/MAG/SIMETHICONE 30 ML UDC PO ONE (11:00)
[2023-08-08] MEDS ORDERED: ONDANSETRON 4 MG ODT PO ONE (11:00)
[2023-08-08] MEDS ORDERED: FAMOTIDINE 20 MG TAB PO ONE (11:00)
[2023-08-08] MEDS ORDERED: ACETAMINOPHEN 325 MG TAB PO ONE (11:00)
[2023-08-08 11:43] LABS: BASOPHILS % (AUTO) 0.4 % (0.0-2.0); EOSINOPHILS # (AUTO) 0.1 K/uL (0-0.4); EOSINOPHILS % (AUTO) 0.6 % (0.0-4.0); HEMATOCRIT 45.6 % (36-52); HEMOGLOBIN 15.5 g/dL (12.0-18.0); LYMPHOCYTES # (AUTO) 1.9 K/uL (2.0-11.5); LYMPHOCYTES % (AUTO) 17.4 % (20.5-51.1); MEAN CORPUSCULAR HEMOGLOBIN 29 pg (27-31); MEAN CORPUSCULAR HGB CONC 34 g/dL (33-37); MEAN CORPUSCULAR VOLUME 85.1 fL (80-94); MONOCYTES # (AUTO) 0.6 K/uL (0.8-1.0); MONOCYTES % (AUTO) 5.2 % (1.7-9.3); NEUTROPHILS # (AUTO) 8.1 K/uL (1.8-7.7); NEUTROPHILS % (AUTO) 76.4 % (42.2-75.2); PLATELET COUNT (AUTO) 352 K/uL (140-450); RED BLOOD CELL COUNT(AUTO) 5.35 MIL/uL (4.20-6.10); RED CELL DISTRIBUTION WIDTH 13.9 % (11.6-13.7); WHITE BLOOD COUNT (AUTO) 10.7 K/uL (4.8-10.8)
[2023-08-08 12:32] LABS: CALCIUM 9.5 mg/dL (8.5-10.1)
[2023-08-08 12:38] LABS: ANION GAP 15.5 (8-16)
[2023-08-08 12:39] LABS: CARBON DIOXIDE 25.5 mmol/L (21-32); CREATININE 0.8 mg/dL (0.6-1.3)
[2023-08-08] MEDS ORDERED: FAMO-92 PO (12:59)
[2023-08-08] MEDS ORDERED: ONDA-188 PO (12:59)
[2023-08-08 13:01] VITALS: BP 110/73; PULSE 63; RESP 18; TEMP 98; O2SAT 98
[2023-08-09] MEDS ORDERED: BENZ200C4 PO (20:59)
[2023-08-09] MEDS ORDERED: PRED20TA5 PO (20:59)
[2023-08-09] MEDS ORDERED: LORA10TA19 PO (20:59)
== END 2023-08-08 13:19 | disposition home or self-care (01) ==
LOC: MED 09:55
DX: K29.70 Gastritis, unspecified, without bleeding (principal); Z98.890 Other specified postprocedural states; Z79.899 Other long term (current) drug therapy; Z79.1 Long term (current) use of non-steroidal anti-inflammatories (NSAID); Z79.2 Long term (current) use of antibiotics
CPT/HCPCS: 36415; 80048; 83690; 85025; 99284; Q0162

== ENCOUNTER 2023-08-09 09:52 | Inpatient (IN) | payer MEDICAID ==
[~2023-08-09] VITALS: Ht 162.6 cm; Wt 98.9 kg
[~2023-08-09 09:52] MED LIST changes: +FAMO-92 PO; +ONDA-188 PO
[2023-08-09 10:20] VITALS: BP 124/78; PULSE 85; RESP 17; TEMP 97.9; O2SAT 98
[2023-08-09] MEDS ORDERED: ONDANSETRON 4 MG/2 ML VIAL IVP ONE (11:20)
[2023-08-09] MEDS ORDERED: KETOROLAC 30 MG/ML VIAL IVP ONE (11:20)
[2023-08-09 11:48] LABS: BASOPHILS % (AUTO) 0.3 % (0.0-2.0); EOSINOPHILS # (AUTO) 0.2 K/uL (0-0.4); EOSINOPHILS % (AUTO) 1.3 % (0.0-4.0); HEMATOCRIT 45.2 % (36-52); HEMOGLOBIN 15.4 g/dL (12.0-18.0); LYMPHOCYTES # (AUTO) 2.2 K/uL (2.0-11.5); LYMPHOCYTES % (AUTO) 19.3 % (20.5-51.1); MEAN CORPUSCULAR HEMOGLOBIN 29 pg (27-31); MEAN CORPUSCULAR HGB CONC 34 g/dL (33-37); MEAN CORPUSCULAR VOLUME 84.2 fL (80-94); MONOCYTES # (AUTO) 0.7 K/uL (0.8-1.0); MONOCYTES % (AUTO) 5.9 % (1.7-9.3); NEUTROPHILS # (AUTO) 8.5 K/uL (1.8-7.7); NEUTROPHILS % (AUTO) 73.2 % (42.2-75.2); PLATELET COUNT (AUTO) 302 K/uL (140-450); RED BLOOD CELL COUNT(AUTO) 5.36 MIL/uL (4.20-6.10); RED CELL DISTRIBUTION WIDTH 14.1 % (11.6-13.7); WHITE BLOOD COUNT (AUTO) 11.6 K/uL (4.8-10.8)
[2023-08-09 12:21] LABS: ANION GAP 15.4 (8-16); CALCIUM 8.7 mg/dL (8.5-10.1); CARBON DIOXIDE 26.3 mmol/L (21-32); CREATININE 0.7 mg/dL (0.6-1.3); POTASSIUM 3.7 mmol/L (3.5-5.1)
[2023-08-09 12:22] LABS: ALBUMIN 3.5 g/dL (3.4-5.0); BILIRUBIN,DIRECT 0.1 mg/dL (0.0-0.3); TOTAL BILIRUBIN 0.8 mg/dL (0.0-1.0); TOTAL PROTEIN, SERUM 9.1 g/dL (6.4-8.2)
[2023-08-09 13:18] LABS: LACTIC ACID 1.7 mmol/L (0.4-2.0)
[2023-08-09] MEDS ORDERED: ACETAMINOPHEN 325 MG TAB PO PRN (14:10)
[2023-08-09] MEDS ORDERED: ONDANSETRON 4 MG/2 ML VIAL IVP PRN (14:10)
[2023-08-09] MEDS: DEXT 5% /NACL 0.9% 1,000 ML IV SCH (14:39)
[2023-08-09] MEDS ORDERED: LORA10TA19 PO (20:59)
[2023-08-09] MEDS ORDERED: BENZ200C4 PO (20:59)
[2023-08-09] MEDS ORDERED: PRED20TA5 PO (20:59)
[2023-08-09 21:35] VITALS: BP 134/76; PULSE 88; RESP 18; TEMP 98.8; O2SAT 94
[2023-08-09] MEDS ORDERED: CYCLOBENZAPRINE 10 MG TAB PO PRN (21:35)
[2023-08-09] MEDS: PANTOPRAZOLE 40 MG INJ VIAL IVP SCH (22:47)
[2023-08-09] MEDS ORDERED: PIPERACILLIN/TAZOBACTAM 2.25 GM VIAL IV ONE (23:25)
[2023-08-09] MEDS: PIPERACILLIN/TAZOBACTAM 2.25 GM in DEXTROSE 5% 50 ML IV SCH (23:27)
[2023-08-10] MEDS: DEXT 5% /NACL 0.9% 1,000 ML IV SCH ×3 (02:40→20:31)
[2023-08-10 04:00] VITALS: BP 125/88; PULSE 76; RESP 18; TEMP 97.6; O2SAT 94
[2023-08-10] MEDS: MORPHINE SULFATE 2 MG/ML SYR IVP PRN ×2 (04:45→15:17)
[2023-08-10 05:10] LABS: BASOPHILS # (AUTO) 0.1 K/uL (0.00-0.22); BASOPHILS % (AUTO) 0.7 % (0.0-2.0); EOSINOPHILS # (AUTO) 0.4 K/uL (0-0.4); EOSINOPHILS % (AUTO) 4.8 % (0.0-4.0); HEMATOCRIT 43.5 % (36-52); HEMOGLOBIN 14.9 g/dL (12.0-18.0); LYMPHOCYTES # (AUTO) 2.4 K/uL (2.0-11.5); LYMPHOCYTES % (AUTO) 26.8 % (20.5-51.1); MEAN CORPUSCULAR HEMOGLOBIN 29 pg (27-31); MEAN CORPUSCULAR HGB CONC 34 g/dL (33-37); MEAN CORPUSCULAR VOLUME 84.6 fL (80-94); MONOCYTES # (AUTO) 0.9 K/uL (0.8-1.0); MONOCYTES % (AUTO) 9.7 % (1.7-9.3); NEUTROPHILS # (AUTO) 5.3 K/uL (1.8-7.7); PLATELET COUNT (AUTO) 306 K/uL (140-450); RED BLOOD CELL COUNT(AUTO) 5.14 MIL/uL (4.20-6.10); WHITE BLOOD COUNT (AUTO) 9.1 K/uL (4.8-10.8)
[2023-08-10] MEDS ORDERED: PIPERACILLIN/TAZOBACTAM 2.25 GM VIAL IV ONE (05:22)
[2023-08-10] MEDS: PIPERACILLIN/TAZOBACTAM 2.25 GM in DEXTROSE 5% 50 ML IV SCH ×3 (05:25→20:30)
[2023-08-10 05:52] LABS: ANION GAP 12.5 (8-16); CALCIUM 8.8 mg/dL (8.5-10.1); CARBON DIOXIDE 30.3 mmol/L (21-32); CREATININE 0.9 mg/dL (0.6-1.3); POTASSIUM 3.8 mmol/L (3.5-5.1)
[2023-08-10 08:00] VITALS: BP 112/73; PULSE 83; RESP 14; TEMP 97.5; O2SAT 95
[2023-08-10] MEDS: LORATADINE 10 MG TAB PO SCH (09:00)
[2023-08-10] MEDS: PANTOPRAZOLE 40 MG INJ VIAL IVP SCH ×2 (09:41→20:31)
[2023-08-10 16:00] VITALS: BP 109/71; PULSE 92; RESP 15; TEMP 98.3; O2SAT 95
[2023-08-10 20:00] VITALS: BP 114/73; PULSE 103; RESP 22; TEMP 97.4; O2SAT 96
[2023-08-11] MEDS: HYDROcodone/APAP 5/325 MG 1 TAB TAB PO PRN ×2 (02:47→21:23)
[2023-08-11] MEDS: DEXT 5% /NACL 0.9% 1,000 ML IV SCH ×2 (03:40→13:02)
[2023-08-11 04:00] VITALS: BP 101/58; PULSE 78; RESP 21; TEMP 97.6; O2SAT 94
[2023-08-11] MEDS: PIPERACILLIN/TAZOBACTAM 2.25 GM in DEXTROSE 5% 50 ML IV SCH ×3 (05:17→20:44)
[2023-08-11] MEDS ORDERED: ceFAZolin 2,000 MG VIAL ONE (07:36)
[2023-08-11 08:00] VITALS: BP 121/63; PULSE 75; RESP 18; TEMP 97; O2SAT 98
[2023-08-11] MEDS: LIDOCAINE/EPI MPF 1%1:200000 30 ML VIAL INJ ONE ×2 (08:35→09:22)
[2023-08-11] MEDS: BUPIVACAINE-MPF 0.25% 30 ML VIAL INJ ONE ×2 (08:36→09:22)
[2023-08-11] MEDS ORDERED: SEVOFLURANE 250 ML BTL INH ONE (08:55)
[2023-08-11] MEDS: LORATADINE 10 MG TAB PO SCH (09:00)
[2023-08-11] MEDS: PANTOPRAZOLE 40 MG INJ VIAL IVP SCH ×2 (09:00→20:45)
[2023-08-11] MEDS ORDERED: ACETAMINOPHEN 100 ML IV ONE (09:01)
[2023-08-11] MEDS ORDERED: LIDOCAINE 2% 100 MG/5 ML SYR IVP ONE ×3 (09:02)
[2023-08-11] MEDS ORDERED: fentaNYL citrate 0.05 MG/ML VIAL ONE (09:03)
[2023-08-11] MEDS ORDERED: MIDAZOLAM 2 MG/2 ML VIAL ONE (09:03)
[2023-08-11] MEDS ORDERED: PROPOFOL 200 MG/20 ML VIAL IV ONE ×2 (09:16→09:29)
[2023-08-11] MEDS ORDERED: SUCCINYLCHOLINE CHLORIDE 200 MG/10 ML VIAL IVP ONE (09:16)
[2023-08-11] MEDS ORDERED: ROCURONIUM 50 MG/5 ML VIAL IV ONE (09:16)
[2023-08-11] MEDS ORDERED: DEXAMETHASONE 4 MG/ML VIAL ONE ×2 (09:25)
[2023-08-11] MEDS ORDERED: ONDANSETRON 4 MG/2 ML VIAL ONE ×2 (09:27)
[2023-08-11] MEDS ORDERED: NEOSTIGMINE 1:1000 10 MG/10 ML VIAL ONE (09:56)
[2023-08-11] MEDS ORDERED: GLYCOPYRROLATE 0.2 MG/ML VIAL ONE ×4 (09:56)
[2023-08-11] MEDS ORDERED: HYDROmorphone PFS 2 MG/ML SYR ONE (10:52)
[2023-08-11] MEDS ORDERED: HYDROmorphone 1 MG/ML AMP IVP PRN (10:55)
[2023-08-11] MEDS: MORPHINE SULFATE 2 MG/ML SYR IVP PRN (14:58)
[2023-08-11 20:00] VITALS: BP 104/69; PULSE 101; RESP 18; TEMP 98.5; O2SAT 91
[2023-08-12] MEDS: DEXT 5% /NACL 0.9% 1,000 ML IV SCH ×3 (02:54→17:10)
[2023-08-12 04:00] VITALS: BP 113/76; PULSE 70; RESP 18; TEMP 97.5; O2SAT 99
[2023-08-12] MEDS: PIPERACILLIN/TAZOBACTAM 2.25 GM in DEXTROSE 5% 50 ML IV SCH ×2 (05:34→12:29)
[2023-08-12 08:00] VITALS: BP 99/52; PULSE 73; RESP 17; TEMP 97.9; O2SAT 97
[2023-08-12] MEDS: LORATADINE 10 MG TAB PO SCH (08:46)
[2023-08-12] MEDS: PANTOPRAZOLE 40 MG INJ VIAL IVP SCH (10:33)
[2023-08-12] MEDS: MORPHINE SULFATE 2 MG/ML SYR IVP PRN (12:33)
[2023-08-12 16:00] VITALS: BP 100/52; PULSE 77; RESP 18; TEMP 97.8; O2SAT 94
[2023-08-12] MEDS ORDERED: CIPR500T4 PO (17:00)
== END 2023-08-12 17:55 | disposition home or self-care (01) | DRG 263 ==
LOC: MED 09:52 → MMU 14:10 → MTU 19:07
PROVIDERS: ADMIT Family Medicine; ATTEND Family Medicine
PROC: 0FT44ZZ Resection of Gallbladder, Percutaneous Endoscopic Approach (ICD-10-PCS; principal; 2023-08-11 09:00)
DX: K81.0 Acute cholecystitis (principal); D72.829 Elevated white blood cell count, unspecified
CPT/HCPCS: 36415; 71045; 76705; 78445; 80048; 80076; 83605; 83690; 85025; 85730; 87040; 87081; 88304; 93005; 96365; 96375; 99285; C9113; J0330; J0694; J1100; J1170; J1885; J2001; J2250; J2270; J2405; J2543; J2704; J2710; J3010; J3490; J7030; J7060; J7120; Q0092